=== PATIENT | female | born 1945 | race Caucasian/White ===

== ENCOUNTER → 2017-01-25 | Outpatient (CLI) | payer OTHER | LOC: CIMAGING 13:53 | PROVIDERS: ATTEND Family Medicine | DX: M85.832 Other specified disorders of bone density and structure, left forearm (principal) | CPT/HCPCS: 73090-PO ==

== ENCOUNTER → 2017-02-08 | Outpatient (CLI) | payer OTHER | LOC: FIMAGING 14:11 | PROVIDERS: ATTEND Family Medicine | DX: M79.89 Other specified soft tissue disorders (principal) ==

== ENCOUNTER → 2017-07-12 | Outpatient (CLI) | payer OTHER | LOC: CIMAGING 14:23 → EDSTATUS 14:25 | PROVIDERS: ATTEND Family Medicine | DX: M16.0 Bilateral primary osteoarthritis of hip (principal) | CPT/HCPCS: 73521-PO ==

== ENCOUNTER → 2017-09-20 | Outpatient (CLI) | payer OTHER | LOC: CIMAGING 08:06 | PROVIDERS: ATTEND Family Medicine | DX: Z12.31 Encounter for screening mammogram for malignant neoplasm of breast (principal) | CPT/HCPCS: G0202 ==

== ENCOUNTER 2017-11-01 05:59 | Inpatient (IN) | payer OTHER ==
[2017-11-01] MEDS ORDERED: ROPIVACAINE 0.2% 80 MG, EPINEPHrine 0.2 MG, KETOROLAC TROMETHAMINE 30 MG in SYRINGE 0 ML IU ONE (06:00)
[2017-11-01] MEDS ORDERED: TRANEXAMIC ACID 3,000 MG in NS 50 ML IRR ONE (06:00)
[2017-11-01] MEDS ORDERED: ceFAZolin 2 GM/SWFI 2 GM/20 ML SYR IVP ONE (06:13)
[2017-11-01] MEDS ORDERED: FAMOTIDINE 20 MG TAB PO ONE (06:13)
[2017-11-01] MEDS ORDERED: ACETAMINOPHEN 325 MG TAB PO ONE (06:13)
[2017-11-01] MEDS ORDERED: DEXAMETHASONE 4 MG/ML VIAL IVP ONE (06:13)
[2017-11-01] MEDS ORDERED: LIDOCAINE 1% 2 ML INJ ID PRN (06:14)
[2017-11-01] MEDS ORDERED: LR 1,000 ML IV ONE (06:14)
[2017-11-01] MEDS ORDERED: TRANEXAMIC ACID 3,000 MG/50 ML BAG IRR ONE (06:39)
[2017-11-01] MEDS ORDERED: MIDAZOLAM 2 MG/2 ML VIAL IVP ONE (06:46)
--- NOTE | 2017-11-01 06:46 | PDANEPAE ---
ANE History of Present Illness right JOHN ANE Past Medical History - Cardiovascular History Hx Hypertension: Yes Hx Arrhythmias: No Hx Chest Pain: No Hx Coronary Artery / Peripheral Vascular Disease: No Hx CHF / Valvular Disease: No Hx Palpitations: No - Pulmonary History Hx COPD: No Hx Asthma/Reactive Airway Disease: No Hx Recent Upper Respiratory Infection: No Hx Oxygen in Use at Home: No Hx Sleep Apnea: No Sleep Apnea Screening Result - Last Documented: Negative - Neurologic History Hx Cerebrovascular Accident: No Hx Seizures: No Hx Dementia: No - Endocrine History Hx Diabetes: No - Renal History Hx Renal Disorders: No - Liver History Hx Hepatic Disorders: No - Neurological & Psychiatric Hx Hx Neurological and Psychiatric Disorders: Yes Neurological / Psychiatric History Comment: peripheral neuropathy - Cancer History Hx Cancer: No - Congenital Disorder History Hx Congenital Disorders: No - GI History Hx Gastrointestinal Disorders: No - Other Health History Other Health History: upper partial - Chronic Pain History Chronic Pain: No - Surgical History Prior Surgeries: lypoma removed on right thigh. parathyroid removed.n/a ANE Review of Systems Review of systems is: negative Review of Systems: - Exercise capacity Exercise capacity: >=4 METS METS (RN): 4 METS ANE Patient History - Allergies Allergies/Adverse Reactions: codeine [Codeine] Allergy (Mild, Verified 01/25/15 09:36) Abdominal Cramping - Home Medications Home Medications: Lisinopril [Zestril 2.5 mg (*)] 2.5 mg PO DAILY 01/25/15 [Last Taken 2 Days Ago ~10/30/17] Aspirin [Aspirin 81mg (*)] 81 mg PO DAILY 09/25/17 [Last Taken 10/22/17] Cholecalciferol (Vitamin D3) [Vitamin D3] 5,000 unit PO DAILY 09/25/17 [Last Taken 10/22/17] Herbals/Supplements -Info Only 1 ea PO DAILY 09/25/17 [Last Taken 10/22/17] Multivitamins [Multivitamin (*)] 1 each PO DAILY 09/25/17 [Last Taken 10/22/17] Nortriptyline HCl [Pamelor 50 mg (*)] 100 mg PO HS 09/25/17 [Last Taken 2 Days Ago ~10/30/17] Benedict-3 Fatty Acids [Fish Oil 1000 mg (*)] 1,000 mg PO DAILY 09/25/17 [Last Taken 10/22/17] Simvastatin [Zocor] 40 mg PO DAILY 09/25/17 [Last Taken 1 Week Ago ~10/25/17] - NPO status NPO Status: no food or drink >8 hours NPO Since - Liquids (Date): 10/31/17 NPO Since - Liquids (Time): 16:00 NPO Since - Solids (Date): 10/31/17 NPO Since - Solids (Time): 18:00 - Anes Hx Anes Hx: no prior problems - Smoking Hx Smoking Status: Never smoked - Alcohol Use Alcohol Use: None - Family Anes Hx Family Anes Hx: none Family Hx Anesthesia Complications: none ANE Labs/Vital Signs - Vital Signs Vital Signs: reviewed preoperatively; see RN documention for details Blood Pressure: 170/79 Heart Rate: 81 Respiratory Rate: 18 O2 Sat (%): 92 Height: 162.56 cm Weight: 67.132 kg ANE Physical Exam - Airway Mallampati Score: Class 2 Mouth exam: normal dental/mouth exam, dentures - Pulmonary Pulmonary: no respiratory distress - Cardiovascular Cardiovascular: regular rate and rhythym - ASA Status ASA Status: II ANE Anesthesia Plan Anesthesia Plan: spinal
[2017-11-01] MEDS ORDERED: LIDOCAINE 2% 5 ML SDV ONE (06:58)
[2017-11-01] MEDS ORDERED: PROPOFOL/EMULSION 500 MG/50 ML BOTTLE IV ONE (06:59)
--- NOTE | 2017-11-01 07:26 | PDHPUP ---
History & Physical Update H&P update statement: This history and physical update is based on an assessment of the patient which was completed after admission or registration (within 24 hours), but prior to the surgery/procedure. H&P update: H&P reviewed & patient examined, no change in patient's condition since H&P completed
[2017-11-01] MEDS ORDERED: ONDANSETRON 4 MG/2 ML VIAL ONE (08:19)
[2017-11-01] MEDS ORDERED: diphenhydrAMINE 25 MG CAP PO PRN (08:34)
[2017-11-01] MEDS ORDERED: CYCLOBENZAPRINE 10 MG TAB PO PRN (08:34)
[2017-11-01] MEDS ORDERED: PROMETHAZINE HCL 25 MG/ML INJ IVP PRN ×2 (08:34→08:40)
[2017-11-01] MEDS ORDERED: TEMAZEPAM 15 MG CAP PO PRN (08:34)
[2017-11-01] MEDS ORDERED: PROMETHAZINE HCL 25 MG SUPPR PR PRN (08:34)
[2017-11-01] MEDS ORDERED: ONDANSETRON 4 MG/2 ML VIAL IVP PRN ×2 (08:34→08:40)
[2017-11-01] MEDS ORDERED: oxyCODONE IR 5 MG TAB PO PRN (08:34)
[2017-11-01] MEDS ORDERED: BISACODYL 10 MG SUPP PR PRN (08:34)
[2017-11-01] MEDS ORDERED: POLYETHYLENE GLYCOL 3350 17 GM PKT PO PRN (08:34)
[2017-11-01] MEDS ORDERED: MAGNESIUM HYDROXIDE 30 ML UDCUP PO PRN (08:34)
[2017-11-01] MEDS ORDERED: METOCLOPRAMIDE 10 MG/2 ML VIAL IVP PRN (08:34)
[2017-11-01] MEDS ORDERED: LACTULOSE 20 GM/30 ML UDCUP PO PRN (08:34)
[2017-11-01] MEDS ORDERED: DIPHENOXYLATE/ATROPINE LOMOTIL 1 TAB PO PRN (08:34)
[2017-11-01] MEDS ORDERED: ONDANSETRON DISINTEGRATING 4 MG TAB PO PRN (08:34)
--- NOTE | 2017-11-01 08:34 | POSTOPPROG ---
Post Op Note Date of Operation: 11/01/17 Surgeon: Venice Swenson Analytics Analyst: jayshree swenson Anesthesiologist: dr. driscoll Anesthesia: Spinal Pre-op Diagnosis: right hip OA Post-op Diagnosis: same Indication: right hip pain due to OA that failed conservative measures Procedure: R JOHN ant approach Findings: severe hip OA Inf/Abcess present in the surg proc area at time of surgery?: No EBL: 100-500
[2017-11-01] MEDS ORDERED: ALBUTEROL 3 ML DEYVIAL IH PRN (08:40)
[2017-11-01] MEDS ORDERED: OXYCODONE/APAP 5/325 TAB PO PRN (08:40)
[2017-11-01] MEDS ORDERED: NALOXONE HCL 0.4 MG/ML INJ IVP PRN (08:40)
[2017-11-01] MEDS ORDERED: PHENYLEPHRINE HCL 100 MCG/ML SYR IVP PRN (08:40)
[2017-11-01] MEDS ORDERED: HYDROCODONE/APAP 5/325 TAB PO PRN (08:40)
--- NOTE | 2017-11-01 08:42 | POSTANESTH ---
Post Anesthetic Evaluation Cardiovascular Status: Normal, Stable Respiratory Status: Normal, Stable Level of Consciousness/Mental Status: Can Participate in Eval Pain Control: Adequate, Prn Tx Ordered Nausea/Vomiting Control: Adequate, Prn Tx Ordered Complications Possibly Related to Anesthesia: None Noted
[2017-11-01] MEDS: fentaNYL 100 MCG/2 ML INJ IVP PRN ×2 (08:55→09:07)
[2017-11-01] MEDS ORDERED: HYDROmorphONE/DILAUDID 1 MG/ML INJ ONE (08:55)
[2017-11-01] MEDS ORDERED: fentaNYL 100 MCG/2 ML INJ ONE (08:55)
[2017-11-01] MEDS: HYDROmorphONE/DILAUDID 1 MG/ML INJ IVP PRN ×2 (08:57→09:19)
[2017-11-01] MEDS ORDERED: LR 1,000 ML IV SCH (09:00)
[2017-11-01] MEDS: ACETAMINOPHEN 325 MG TAB PO SCH ×3 (13:13→23:53)
[2017-11-01] MEDS: SENNOSIDES/DOCUSATE SODIUM TAB PO SCH ×2 (13:39→21:51)
[2017-11-01] MEDS: ceFAZolin 2 GM/DEXTROSE 100 ML IV SCH ×2 (14:39→21:52)
[2017-11-01] MEDS ORDERED: NORTRIPTYLINE HCL 50 MG CAP PO SCH (21:00)
[2017-11-01] MEDS: ASPIRIN 81 MG CHEWABLE TAB PO SCH (21:50)
[2017-11-01] MEDS: FAMOTIDINE 20 MG TAB PO SCH (21:51)
[2017-11-02 04:47] LABS: HEMATOCRIT 35.7 % (38.0-47.0); HEMOGLOBIN 12.5 g/dL (12.6-16.3)
[2017-11-02] MEDS: ACETAMINOPHEN 325 MG TAB PO SCH (05:44)
[2017-11-02] MEDS ORDERED: LISINOPRIL 5 MG TAB PO SCH (09:00)
[2017-11-02] MEDS ORDERED: ATORVASTATIN CALCIUM 20 MG TAB PO SCH (09:00)
[2017-11-02] MEDS ORDERED: NON-FORMULARY NEW DRUG (Simvastatin [Zocor] 40 MG) PO SCH (09:00)
[2017-11-02 09:04] VITALS: BP 126/60; PULSE 88; RESP 16; TEMP 97.4; O2SAT 90
[2017-11-02] MEDS: SENNOSIDES/DOCUSATE SODIUM TAB PO SCH (09:23)
[2017-11-02] MEDS: ASPIRIN 81 MG CHEWABLE TAB PO SCH (09:24)
[2017-11-02] MEDS: FAMOTIDINE 20 MG TAB PO SCH (09:24)
--- NOTE | 2017-11-02 12:01 | ASDISCHSUM ---
Discharge Information Plan Status:Home with No Needs Medically Cleared to Leave: Discharge Date:11/02/2017 11:42 AM CM D/C Disposition:Home, Routine, Self-Care ADT D/C Disposition:Home, Routine, Self-Care Projected Discharge Date:11/02/2017 11:42 AM Transportation at D/C: Discharge Delay Reason: Follow-Up Date:11/02/2017 11:42 AM Discharge Slot: Final Diagnosis: Placement Information Patient Contact Information Contact Name:KAMARI Relationship: Address:[address] [place] [address] City:[place] Alternate Phone: [facility]/Zip Code:[place] [address] Email: Financial Information Financial Class:Medicare Advantage Plans Primary Plan Desc:[facility]AGE PLANS Primary Plan Number:[id number] Secondary Plan Desc: Secondary Plan Number: Assessment Information Intervention Information
--- NOTE | 2017-11-02 13:05 | SOAPPROG ---
SOAP Progress Note Assessment/Plan: Assessment: Emily is doing well POD 1 s/p R JOHN 1). pain management: pain well controlled on oral pain meds 2) VTE ppx: aspirin 81 mg BID for 4 weeks recommended 3) anemia: level expected initially postop 4) d/c planning: d/c to home today pending release from PT Plan: 11/02/17 13:04 Subjective: Emily is doing well today, denies SOB, chest pain and n/v. Objective: Vital Signs Temp Pulse Resp BP Pulse Ox 36.3 C 88 16 126/60 H 90 L 11/02/17 08:00 11/02/17 08:00 11/02/17 08:00 11/02/17 09:24 11/02/17 08:00 Laboratory Results 11/02/17 04:26 11/01/17 11/02/17 11/03/17 05:59 05:59 05:59 Intake Total 980 300 Output Total 725 400 Balance 255 -100 RLE: incision dressing is clean and dry, NVI, +pf/df ICD10 Worksheet Patient Problems: Problems Problem Status Onset Primary localized osteoarthritis of right hip Acute
--- NOTE | 2017-11-02 14:43 | GOP ---
[f rep st] OPERATIVE REPORT DATE OF OPERATION: 11/01/2017 SURGEON: Lainey Johnson MD INFORMATION CODER: YANCY Adler. ANESTHESIA: Spinal. PREOPERATIVE DIAGNOSIS: Right hip osteoarthritis. POSTOPERATIVE DIAGNOSIS: Right hip osteoarthritis. PROCEDURE PERFORMED: Right total hip arthroplasty with x-ray. FINDINGS: ESTIMATED BLOOD LOSS: 200 cc. INDICATIONS: The patient has progressively worsening arthritis of the hip which has failed medical m anagement. The patient understands the treatment options including continued non-operative care and has selected surgical intervention. The patient has decided to undergo total hip arthroplasty via th e direct anterior approach, understanding the risks of the procedure including, but not limited to, n eurovascular injury, infection, persistent pain, component wear and loosening, deep venous thrombosis , pulmonary embolism, limb length inequality, hip instability (including dislocation), and intra-oper ative fractures. DESCRIPTION OF PROCEDURE: After proper identification of the patient including verification and ana m ing the surgical site, the patient was brought to the operating room and placed in the supine positio n. All bony prominences were well padded. Anesthesia was induced without complication and intraveno us prophylactic antibiotics were administered prior to skin incision. The operative leg was placed in the Trumpf Arch table extension and the well leg in a Yellofin leg ho lder. The patient was prepped and draped in the usual sterile fashion. The C-arm was draped for int ra-operative fluoroscopy to check acetabular position, femoral component position including leg lengt h and femoral offset. Attention was then drawn to surgical exposure of the hip. An incision was made with a #10 [place] r blade starting 3 cm lateral and 3 cm distal to the anterior superior iliac spine measuring 8-10 cm and coursing distally toward the greater trochanter. The skin and subcutaneous tissues were divided sharply down to the fascia bharti. The fascia bharti was incised in line with the skin incision exposing the underlying tensor fascia bharti muscle. The muscle was bluntly elevated from the fascia and the f irst extracapsular Cobra retractor was placed laterally at the junction of the superior femoral neck and greater trochanter. The lateral femoral circumflex vessels were identified, cauterized, and divi ded with the Aquamantys bipolar cautery. The deep investing fascia of the TFL was divided to allow p alina mobilization of the muscle preventing damage during the retraction. The reflected head of the rectus femoris muscle was elevated off the anterior hip capsule and a medial Cobra retractor was plac ed just proximal to the lesser trochanter. The anterior capsulotomy was made sharply from the superolateral acetabulum to the saddle junction of the superior femoral neck and greater trochanter, then coursing inferomedial towards the lesser troc hanter. The retractors were then placed in the intracapsular position for femoral neck osteotomy. C orresponding to pre-operative templating, the osteotomy was made with the oscillating saw carefully p rotecting the greater trochanter and soft tissues. The femoral head was removed from the acetabulum with a corkscrew and confirmed to be severely arthritic with exposed bone, deformity and osteophytes. Similar findings were confirmed in the acetabulum. The Arch table extension was then placed in 40 degrees external rotation. Attention was then drawn to the acetabular preparation. After placement of the anterior and posterio r Cobra retractors outside the labrum and intracapsular, the circumferential labrum was removed sharp ly. The foveal contents were then removed and hemostasis obtained with cautery. The first reamer selected was sized using the removed femoral head. Reaming began with medialization and then commenced in 2 mm increments at 45 degrees of abduction and 15 degrees of anteversion using fluoroscopic navigation. Reaming ceased 1 mm less than the definitive acetabular component and marissa esponded to the pre-operative templating. The final acetabular component was inserted using fluorosc opy to achieve proper orientation yielding excellent purchase and stability in the acetabulum. The f inal acetabular liner was then placed and its seating confirmed. Attention was then turned to the femur. The Arch table extension was placed in extension and adducti on, delivering the osteotomized femoral neck into the wound. A 2-pronged femoral elevator was placed at the calcar and another at the tip of the greater trochanter. The posterolateral capsule was rele ased with cautery allowing mobilization of the femur lateral and anterior for preparation. The exter nal rotators were visualized and preserved. A curette and rongeur were used to open the starting poi nt for broaching. Serial broaching started with the #0 broach and ended with the broach that exhibit ed excellent fit in the proximal femur. A change in pitch during mallet strikes was accompanied by t he inability to advance the broach any further. The trial reduction was performed and fluoroscopic n avigation was utilized to check limb length. Adjustments were made to equalize limb length according ly. After the final trials were accepted they were removed and the wound was copiously lavaged. The femo ral component was seated to the same depth as the final broach and the femoral head was impacted onto the clean trunnion. The hip was then reduced for the final time and once more fluoroscopy was used to check that limb length equality was achieved. The wound was irrigated and closed in layers, the fascia bharti with 2-0 Quill, the subcutaneous tissue with 2-0 Quill, and the skin with Dermabond. Sterile dressings were applied. Final sharps and spon ge counts were accurate. The patient was then transferred to a hospital bed and brought to the [facility] room in stable condition. IMPLANTS: Accolade II size 4 at 127. Acetabular component is a 48 mm Tritanium. Liner is a Trident X3, 32 mm. The head is a Biolox Delta 32 mm, -4. /[id number]/MODL
--- NOTE | 2017-11-03 00:32 | GDS ---
[f rep st] DISCHARGE SUMMARY ADMISSION DIAGNOSIS: Right hip osteoarthritis. DISCHARGE DIAGNOSIS: Right hip osteoarthritis. PROCEDURE: Right total hip arthroplasty. VTE PROPHYLAXIS: Aspirin 81 mg twice daily recommended for 4 weeks. BRIEF DESCRIPTION OF HOSPITAL STAY: Patient was admitted for an elective joint arthroplasty. The pa sidra tolerated the procedure well and has passed physical therapy. The patient was given appropriat e antibiotic prophylaxis and venous thromboembolism prophylaxis. The patient's pain was well control led on oral pain medication, patient was holding down food, and had urinated. Decision was made to d ischarge the patient. The patient was given post-operative prescriptions pre-operatively. PLAN: Please follow up as scheduled with Dr. Johnson's office November 30 at 2:30 p.m. /[id number]/MODL
== END 2017-11-02 11:42 | disposition home or self-care (01) | DRG 470 ==
LOC: F3N 05:59
PROVIDERS: ADMIT Orthopaedic Surgery; ATTEND Orthopaedic Surgery
PROC: 0SR904Z Replacement of Right Hip Joint with Ceramic on Polyethylene Synthetic Substitute, Open Approach (ICD-10-PCS; principal; 2017-11-01 07:15)
DX: M16.11 Unilateral primary osteoarthritis, right hip (principal); I10 Essential (primary) hypertension
CPT/HCPCS: 97110-GP; 97116-GP; 97161-GP; 97165-GO; G8978-GP-CJ; G8979-GP-CI; G8987-GO-CI; G8988-GO-CI; G8989-GO-CI; J0171; J0690; J1100; J1170; J1885; J2250; J2370; J2405; J2704; J2795; J3010

== ENCOUNTER 2018-02-24 13:15 | Emergency (ER) | payer OTHER ==
[2018-02-24 13:29] VITALS: RESP 18; TEMP 99.1; O2SAT 97
--- NOTE | 2018-02-24 14:17 | EDPHY ---
H & P Time Seen by Provider: 02/24/18 13:57 HPI/ROS: This patient presents with a 3 day history cough and chest congestion. She reports subjective fevers in addition associated with some wheezing and mild shortness of breath. Her brought her in by private vehicle for evaluation of the symptoms. She states that the symptoms feel similar to an episode of bronchitis she had the past. She also complains of sore throat over the past 24 hr peak intensity 8/10, currently moderate intensity, improves with [id number]-kjjcgon analgesics. She is not sure if the sore throat is attributable to her coughing or primary sore throat. ROS: No high fevers or chills. No significant fatigue despite her symptoms. No other constitutional symptoms HEENT: No significant nasal congestion. No ear pain. Pulmonary: No hemoptysis. No respiratory distress. She reports mild burning pain when she coughs but no pleuritic pain. Cardiovascular: No chest pain at baseline. No heart palpitations. No lightheadedness. No lower extremity swelling or calf pain. GI: No abdominal pain, nausea or vomiting. No diarrhea. : No complaints new line integumentary: No skin rash or pallor. 7 point ROS is otherwise negative. Past Medical/Surgical History: Musculoskeletal pains. Hypertension. Smoking Status: Never smoked Physical Exam: Pleasant 72-year-old female appears younger than her stated age. Her vital signs normal exception of mild hypertension 147/84 General Appearance: Alert, no distress. Eyes: Pupils equal and round no pallor or injection. ENT, Mouth: Mucous membranes moist. Oropharynx clear with no erythema or exudates. Ears: TMs clear bilaterally. Respiratory: She has a dry cough with faint expiratory wheeze. No rales or rhonchi. Cardiovascular: Regular rate and rhythm. No murmur gallop rub. No JVD. No leg swelling or tenderness. Gastrointestinal: Abdomen is soft and nontender, no masses, bowel sounds normal. Neurological: GCS 15 with no focal deficits. Skin: Warm and dry, no rashes. Musculoskeletal: Neck is supple nontender. Extremities are symmetrical, full range of motion. Psychiatric: Mood and affect are normal DIFFERENTIAL DIAGNOSIS: After history and physical exam differential diagnosis was considered for URI with cough, viral or bacterial bronchitis, doubt pneumonia, Constitutional: Initial Vital Signs Temperature (C) 37.3 C 03/31/18 13:26 Heart Rate 87 02/24/18 13:26 Respiratory Rate 18 02/24/18 13:26 Blood Pressure 147/84 H 02/24/18 13:26 O2 Sat (%) 97 02/24/18 13:26 O2 Delivery Mode Room Air Allergies/Adverse Reactions: codeine [Codeine] Allergy (Mild, Verified 01/25/15 09:36) Abdominal Cramping Home Medications: Medication Instructions Recorded Lisinopril [Zestril 2.5 mg (*)] 2.5 mg PO DAILY 01/25/15 Aspirin [Aspirin 81mg (*)] 81 mg PO DAILY 09/25/17 Cholecalciferol (Vitamin D3) 5,000 unit PO DAILY 09/25/17 [Vitamin D3] Herbals/Supplements -Info Only 1 ea PO DAILY 09/25/17 Multivitamins [Multivitamin (*)] 1 each PO DAILY 09/25/17 Nortriptyline HCl [Pamelor 50 mg 100 mg PO HS 09/25/17 (*)] [place]-3 Fatty Acids [Fish Oil 1000 1,000 mg PO DAILY 09/25/17 mg (*)] Simvastatin [Zocor] 40 mg PO DAILY 09/25/17 Acetaminophen [Tylenol 325mg (*)] 650 mg PO Q6HRS tab 11/01/17 Aspirin [Aspirin 81mg (*)] 81 mg PO BID tab.chew 11/01/17 Cyclobenzaprine [Flexeril 10 MG 10 mg PO Q8HRS PRN tab 11/01/17 (*)] Sennosides/Docusate Sodium 1 - 2 tab PO BID tab 11/01/17 [Senokot-S] celeCOXIB [Celebrex (*)] 200 mg PO DAILY cap 11/01/17 oxyCODONE IR [Oxycodone Ir (*)] 5 - 10 mg PO Q3HRS PRN tab 11/01/17 Albuterol Hfa Anes Only [Proair 2 puffs IH Q4 PRN #1 mdi 02/24/18 Hfa Icu (*)] Azithromycin [Zithromax] 250 mg PO DAILY #6 tab 02/24/18 Benzonatate [Tessalon Pearles (RX)] 100 - 200 mg PO TID PRN #20 cap 02/24/18 MDM/Departure - MDM ED Course/Re-evaluation: This patient appears clinically well without findings that would suggest lower respiratory infection, CHF for other red flag findings. I counseled her regarding bronchitis. Will cover with macrolide antibiotic, albuterol, Tessalon Perles for cough prevents sleep. Answered all of her and her ' s questions prior to discharge home. - Depart Disposition: Home, Routine, Self-Care Clinical Impression: Acute bronchitis Qualifiers: Bronchitis organism: unspecified organism Qualified Code(s): J20.9 - Acute bronchitis, unspecified Condition: Good Instructions: Acute Bronchitis (ED) Additional Instructions: Diagnosis: Acute bronchitis Plan: Humidifier Albuterol inhaler with spacer for cough, wheeze or shortness of breath Zithromax antibiotic Tessalon Perles for cough prevents sleep Return for any significant worsening despite the treatment plan. Prescriptions: Albuterol Hfa Anes Only [Proair Hfa Icu (*)] 2 puffs IH Q4 PRN #1 mdi PRN Reason: Wheezing Azithromycin [Zithromax] 250 mg PO DAILY #6 tab Benzonatate [Tessalon Pearles (RX)] 100 - 200 mg PO TID PRN #20 cap PRN Reason: cough Referrals: Emma Norwood DO [Primary Care Provider] - As per Instructions
[2018-02-24 14:23] VITALS: BP 175/62; PULSE 88
== END 2018-02-24 14:22 | disposition home or self-care (01) ==
LOC: CED 13:15
DX: J20.9 Acute bronchitis, unspecified (principal); I10 Essential (primary) hypertension; Z79.82 Long term (current) use of aspirin
CPT/HCPCS: 87400-PO

== ENCOUNTER → 2018-09-26 | Outpatient (CLI) | payer OTHER | LOC: CIMAGING 07:44 | PROVIDERS: ATTEND Family Medicine | DX: Z12.31 Encounter for screening mammogram for malignant neoplasm of breast (principal) ==

== ENCOUNTER → 2019-04-17 | Outpatient (CLI) | payer OTHER | LOC: BRMIMAGING 07:44 | PROVIDERS: ATTEND Family Medicine | DX: Z13.820 Encounter for screening for osteoporosis (principal); M81.0 Age-related osteoporosis without current pathological fracture ==